=== PATIENT | male | born 1960 | race Caucasian/White ===

== ENCOUNTER 2016-11-28 10:07 | Emergency (ER) | payer SELFPAY ==
[~2016-11-28] VITALS: Ht 165.1 cm; Wt 86.0 kg
[2016-11-28 10:10] VITALS: Ht 165.1 cm; Wt 86.0 kg
[2016-11-28] MEDS ORDERED: HYDROCODONE/APAP (5/325) TAB PO ONE (10:30)
[2016-11-28 10:42] LABS: URINE BLOOD (Dip) POC 1+ (NEGATIVE)
[2016-11-28] MEDS ORDERED: SOD CHLORIDE 0.9% 1,000 ML IV STA (11:11)
[2016-11-28 12:07] LABS: BASOPHILS % 0.5 % (0.0-2.0); EOSINOPHILS % 0.4 % (0.0-7.0); HEMATOCRIT 52.4 % (42.0-52.0); HEMOGLOBIN 17.6 g/dl (14.0-18.0); LYMPHOCYTES # 2.1 10^3/ul (0.8-2.9); MEAN CORPUSCULAR HEMOGLOBIN 27.5 pg (29.0-33.0); MEAN CORPUSCULAR HGB CONC 33.6 g/dl (32.0-37.0); MEAN PLATELET VOLUME 12.1 fl (7.4-10.4); MONOCYTE # 0.4 10^3/ul (0.3-0.9); MONOCYTES % 5.2 % (0.0-11.0); NEUTROPHIL # 5.4 10^3/ul (1.6-7.5); NEUTROPHILS % 67.5 % (39.0-77.0); PLATELET COUNT 161 10^3/UL (140-415); RED BLOOD COUNT 6.39 10^6/ul (4.70-6.10); RED CELL DISTRIBUTION WIDTH 12.8 % (11.5-14.5); WHITE BLOOD COUNT 7.9 10^3/ul (4.8-10.8)
--- NOTE | 2016-11-28 12:12 | RADRPT ---
PROCEDURE: XR Thoracic Spine. CLINICAL INDICATION: Back pain. TECHNIQUE: AP and lateral views of the thoracic spine are available for review. COMPARISON: None available FINDINGS: The upper thoracic spine is not well visualized on the lateral view. There is normal kyphosis of thoracic spine. The alignment is unremarkable. There is no acute fracture. There are multilevel mild degenerative changes of thoracic spine with decreased disk spaces and oste ophytosis. The paravertebral soft tissues are unremarkable. IMPRESSION: 1. No acute fracture or traumatic subluxation. If clinical concern persists consider CT. 2. Multilevel mild thoracic discogenic disease. RPTAT: HH .Jaron Fowler MD, MD Date Time Electronically viewed and signed by .Jaron Fowler MD, on 11/28/2016 12:12 .N/
--- NOTE | 2016-11-28 12:17 | RADRPT ---
PROCEDURE: XR Left rib series. CLINICAL INDICATION: Left chest wall pain. TECHNIQUE: Three views of the left rib cage are available for review COMPARISON: None available FINDINGS: Acute mildly displaced fracture of posterior left ninth rib is noted. Questionable nondisplaced fra cture of posterior left seventh and eighth ribs are noted. No radiopaque foreign body is identified. The visualized portions of the underlying lung is clear. IMPRESSION: 1. Acute mildly displaced fracture of posterior left ninth rib. Questionable nondisplaced fracture of posterior left seventh and eighth ribs. RPTAT: HH .Jaron Fowler MD, Date Time Electronically viewed and signed by .Jaron Fowler MD, on 11/28/2016 12:17 .N/
--- NOTE | 2016-11-28 12:21 | RADRPT ---
PROCEDURE: XR Chest. CLINICAL INDICATION: Left posterior rib pain. TECHNIQUE: Single frontal chest x-ray. COMPARISON: Left-sided rib series of the same day. FINDINGS: The lungs volumes are diminished. There are compressive changes with vascular crowding and basilar atelectasis. No pneumothorax, pleural effusion or consolidation is noted. The cardiomediastinal si lhouette is unremarkable. The base of the heart is elevated due to low lung volumes. Left-sided rib fractures are better seen on left rib series of the same day. IMPRESSION: 1. Low lung volumes with compressive changes and basilar atelectasis. 2. Otherwise, no acute cardiopulmonary abnormality. 3. Left-sided rib fractures are better seen on left rib series of the same day. RPTAT: HH .Jaron Fowler MD, MD Date Time Electronically viewed and signed by .Jaron Fowler MD, MD on 11/28/2016 12:21 .N/
[2016-11-28 12:22] LABS: ALBUMIN 4.6 g/dl (3.3-4.9); ALBUMIN/GLOBULIN RATIO 1.31; BILIRUBIN,INDIRECT 0.2 mg/dl (0-1.1); BILIRUBIN,TOTAL 0.2 mg/dl (0.2-1.3); CALCIUM 9.2 mg/dl (8.4-10.2); CREATININE 0.88 mg/dl (0.61-1.24); POTASSIUM 4.6 mmol/L (3.5-5.1); TOTAL PROTEIN 8.1 g/dl (6.1-8.1)
--- NOTE | 2016-11-28 12:23 | RADRPT ---
PROCEDURE: XR Lumbar Spine. CLINICAL INDICATION: Low back pain. TECHNIQUE: Three views of the lumbar spine are available for review COMPARISON: None available FINDINGS: The normal lumbar lordosis is preserved. Alignment is intact. No acute fracture or dislocation is seen. The vertebral body heights are all normal. There are mild degenerative changes of lumbar spine, main ly at L5-S1. IMPRESSION: 1. No acute fracture or dislocation. 2. Mild discogenic disease of lumbar spine, mainly at L5-S1. RPTAT: HH .Jaron Fowler MD, Date Time Electronically viewed and signed by .Jaron Fowler MD, on 11/28/2016 12:22 .N/
--- NOTE | 2016-11-28 12:40 | ERD ---
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 States he fell and landed on some metal bars. Denies any headache, dizziness, blurred vision, loss of consciousness, nausea vomiting. ROS All systems reviewed and are negative except as per history of present illness. Medications Home Meds Active Scripts Naproxen* (Naprosyn*) 500 Mg Tablet, 500 MG PO BID Y for PAIN AND/OR INFLAMMATION, #30 TAB Prov:HUY MILES PA-C 11/28/16 Hydrocodone/Acetaminophen ([place] 5-325 Tablet) 1 Each Tablet, 1 TAB PO Q6H Y for PAIN, #15 TAB Prov:HUY MILES PA-C 11/28/16 Allergies Allergies: Coded Allergies: No Known Allergy (Unverified , 11/28/16) PMhx/Soc Medical and Surgical Hx: pt denies Medical Hx, pt denies Surgical Hx History of Surgery: No Anesthesia Reaction: No Hx Neurological Disorder: No Hx Respiratory Disorders: No Hx Cardiac Disorders: No Hx Psychiatric Problems: No Hx Miscellaneous Medical Probl: No Hx Alcohol Use: No Hx Substance Use: No Hx Tobacco Use: No Smoking Status: Never smoker Physical Exam Vitals Vital Signs Date Time Temp Pulse Resp B/P Pulse Ox O2 Delivery O2 Flow Rate FiO2 11/28/16 10:10 97.6 75 18 163/91 98 Physical Exam Const: No acute distress Head: Atraumatic Eyes: Normal Conjunctiva ENT: Normal External Ears, Nose and Mouth. Neck: Full range of motion..~ No meningismus. Resp: Clear to auscultation bilaterally. No absent breath sounds. No wheezing. Cardio: Regular rate and rhythm, no murmurs Abd: Soft, non tender, non distended. Normal bowel sounds Skin: Abrasions and bruising left-sided flank and left side of ribs Back: No midline tenderness. Left-sided flank tenderness. Ext: No cyanosis, or edema Neur: Awake and alert Psych: Normal Mood and Affect Result Diagram: 11/28/16 1135 11/28/16 1135 Results 24 hrs Laboratory Tests Test 11/28/16 10:47 11/28/16 11:35 Bedside Urine pH (LAB) 6.0 Bedside Urine Protein (LAB) Negative Bedside Urine Glucose (UA) 0.1% Bedside Urine Ketones (LAB) Negative Bedside Urine Blood 1+ Bedside Urine Nitrite (LAB) Negative Bedside Urine Leukocyte Esterase (L Negative White Blood Count 7.910^3/ul Red Blood Count 6.3910^6/ul Hemoglobin 17.6g/dl Hematocrit 52.4% Mean Corpuscular Volume 82.0fl Mean Corpuscular Hemoglobin 27.5pg Mean Corpuscular Hemoglobin Concent 33.6g/dl Red Cell Distribution Width 12.8% Platelet Count 36505^3/UL Mean Platelet Volume 12.1fl Neutrophils % 67.5% Lymphocytes % 26.0% Monocytes % 5.2% Eosinophils % 0.4% Basophils % 0.5% Nucleated Red Blood Cells % 0.0/100WBC Neutrophils # 5.410^3/ul Lymphocytes # 2.110^3/ul Monocytes # 0.410^3/ul Eosinophils # 0.010^3/ul Basophils # 0.010^3/ul Nucleated Red Blood Cells # 0.010^3/ul Sodium Level 144mmol/L Potassium Level 4.6mmol/L Chloride Level 104mmol/L Carbon Dioxide Level 28mmol/L Anion Gap 17 Blood Urea Nitrogen 13mg/dl Creatinine 0.88mg/dl Glucose Level 132mg/dl Calcium Level 9.2mg/dl Total Bilirubin 0.2mg/dl Direct Bilirubin 0.00mg/dl Indirect Bilirubin 0.2mg/dl Aspartate Amino Transf (AST/SGOT) 31IU/L Alanine Aminotransferase (ALT/SGPT) 49IU/L Alkaline Phosphatase 127IU/L Total Protein 8.1g/dl Albumin 4.6g/dl Globulin 3.50g/dl Albumin/Globulin Ratio 1.31 Current Medications Medications (Trade) Dose Ordered Sig/Kasi Route PRN Reason Start Time Stop Time Status Last Admin Dose Admin Acetaminophen/ Hydrocodone Bitart 1 tab 1 tab ONCE ONCE PO 11/28/16 10:30 11/28/16 10:31 DC 11/28/16 10:35 Sodium Chloride (NS) 1,000 ml @ 1,000 mls/hr Q1H STAT IV 11/28/16 11:11 11/28/16 12:10 DC 11/28/16 11:42 IV Flush 10 ml 10 ml STK-MED ONCE .ROUTE 11/28/16 13:05 11/28/16 13:06 DC Sodium Chloride (NS) 100 ml @ ud STK-MED ONCE .ROUTE 11/28/16 13:05 11/28/16 13:06 DC Iohexol (Omnipaque 300mg/ ml) 150 ml STK-MED ONCE .ROUTE 11/28/16 13:05 11/28/16 13:06 DC DIAGNOSTIC IMAGING REPORT Patient: PATRICK FOSTER : 1960 Age: 55 Sex: M MR #: [id number] DOS: 11/28/16 0000 Ordering MD: HUY MILES PA-C Location: [facility] Room/Bed: PROCEDURE: XR Chest. CLINICAL INDICATION: Left posterior rib pain. TECHNIQUE: Single frontal chest x-ray. COMPARISON: Left-sided rib series of the same day. FINDINGS: The lungs volumes are diminished. There are compressive changes with vascular crowding and basilar atelectasis. No pneumothorax, pleural effusion or consolidation is noted. The cardiomediastinal silhouette is unremarkable. The base of the heart is elevated due to low lung volumes. Left-sided rib fractures are better seen on left rib series of the same day. IMPRESSION: 1. Low lung volumes with compressive changes and basilar atelectasis. 2. Otherwise, no acute cardiopulmonary abnormality. 3. Left-sided rib fractures are better seen on left rib series of the same day. RPTAT: HH .Jaron Fowler MD, MD Date Time Electronically viewed and signed by .Jaron Fowler MD, MD on 11/28/2016 12: 21 .N/ CC: HUY MILES PA-C DIAGNOSTIC IMAGING REPORT Patient: PATRICK FOSTER : 1960 Age: 55 Sex: M MR #: [id number] DOS: 11/28/16 0000 Ordering MD: HUY MILES PA-C Location: [facility] Room/Bed: PROCEDURE: XR Lumbar Spine. CLINICAL INDICATION: Low back pain. TECHNIQUE: Three views of the lumbar spine are available for review COMPARISON: None available FINDINGS: The normal lumbar lordosis is preserved. Alignment is intact. No acute fracture or dislocation is seen. The vertebral body heights are all normal. There are mild degenerative changes of lumbar spine, mainly at L5-S1. IMPRESSION: 1. No acute fracture or dislocation. 2. Mild discogenic disease of lumbar spine, mainly at L5-S1. RPTAT: HH .Jaron Fowler MD, MD Date Time Electronically viewed and signed by .Jaron Fowler MD, MD on 11/28/2016 12: 22 .N/ CC: HUY MILES PA-C DIAGNOSTIC IMAGING REPORT Patient: PATRICK FOSTER : 1960 Age: 55 Sex: M MR #: [id number] DOS: 11/28/16 0000 Ordering MD: HUY MILES PA-C Location: [facility] Room/Bed: PROCEDURE: XR Lumbar Spine. CLINICAL INDICATION: Low back pain. TECHNIQUE: Three views of the lumbar spine are available for review COMPARISON: None available FINDINGS: The normal lumbar lordosis is preserved. Alignment is intact. No acute fracture or dislocation is seen. The vertebral body heights are all normal. There are mild degenerative changes of lumbar spine, mainly at L5-S1. IMPRESSION: 1. No acute fracture or dislocation. 2. Mild discogenic disease of lumbar spine, mainly at L5-S1. RPTAT: .Jaron Fowler MD, MD Date Time Electronically viewed and signed by .Jaron Fowler MD, MD on 11/28/2016 12: 22 .N/ CC: HUY MILES PA-C DIAGNOSTIC IMAGING REPORT Patient: PATRICK FOSTER : 1960 Age: 55 Sex: M MR #: [id number] DOS: 11/28/16 0000 Ordering MD: HUY MILES PA-C Location: [facility] Room/Bed: PROCEDURE: XR Thoracic Spine. CLINICAL INDICATION: Back pain. TECHNIQUE: AP and lateral views of the thoracic spine are available for review. COMPARISON: None available FINDINGS: The upper thoracic spine is not well visualized on the lateral view. There is normal kyphosis of thoracic spine. The alignment is unremarkable. There is no acute fracture. There are multilevel mild degenerative changes of thoracic spine with decreased disk spaces and osteophytosis. The paravertebral soft tissues are unremarkable. IMPRESSION: 1. No acute fracture or traumatic subluxation. If clinical concern persists consider CT. 2. Multilevel mild thoracic discogenic disease. RPTAT: HH .Jaron Fowler MD, MD Date Time Electronically viewed and signed by .Jaron Fowler MD, MD on 11/28/2016 12: 12 .N/ CC: HUY MILES PA-C DIAGNOSTIC IMAGING REPORT Patient: PATRICK FOSTER : 1960 Age: 55 Sex: M MR #: [id number] DOS: 11/28/16 1111 Ordering MD: HUY MILES PA-C Location: [facility] Room/Bed: PROCEDURE: CT Abdomen and pelvis with contrast. CLINICAL INDICATION: Left-sided flank pain. History of trauma. Hematuria. TECHNIQUE: CT scan of the abdomen and pelvis with contrast was performed on a multidetector high-resolution CT scan. The patient was scanned following the uncomplicated intravenous administration of 100 cc Omnipaque 300. Coronal and sagittal reformatted images were obtained from the axial source images. Standard CT of the abdomen pelvis with contrast protocols were performed. The total exam CTDI equals 12.1 knee mGy and the total exam DLP equals 761.18 mGy-cm. One or more of the following dose reduction techniques were used: - Automated exposure control. - Adjustment of the mA and/or kV according to patient size. Use of iterative reconstruction technique. COMPARISON: None. FINDINGS: The kidneys are normal in size without evidence of hydronephrosis or definite intra renal masses bilaterally. Note that there is ill-defined low density along the superior aspect of the left kidney is felt to be artifactual secondary to motion. In the lateral left mid kidney is a 5 mm non-obstructing calcified calculus. There are no calcified ureteral calculi. 1.3 cm coarse calcified calculus. Remainder the urinary bladder is unremarkable. The prostate gland is moderate to severely enlarged and impresses the floor of the urinary bladder. Recommend PSA levels. Negative for intra-abdominal free air, free fluid, abscesses or lymphadenopathy. The aorta is unremarkable. The liver is normal in size with diffuse inhomogeneous hepatic fatty infiltration. There are no focal hepatic lesions. The spleen pancreas adrenal glands and gallbladder are unremarkable. No evidence of biliary ductal dilation. There is a small hiatal hernia with the stomach otherwise unremarkable. The small bowel and appendix are unremarkable. There are mild diverticular changes of the distal descending colon but no CT evidence of diverticulitis. Remainder of the colon is unremarkable. The lower thoracic abdominal pelvic portillo are unremarkable. There is dependent lung atelectasis at the lung bases otherwise unremarkable. There are degenerative changes lower thoracic and lumbar spine without acute osseous findings or osteoblastic/osteolytic lesions. 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 IMPRESSION: 1. 5 mm non-obstructing left mid renal calcified calculus. Additional 1.3 cm coarse urinary bladder calcified calculus. No other urinary calcified calculi and no obstructive uropathy bilaterally. 2. Moderate to severely enlarged prostate gland with impression on the floor in her bladder. Recommend PSA levels. 3. Small hiatal hernia. RPTAT:AAJJ B Rosas, Physician Date Time Electronically viewed and signed by Samson Rosas Physician on 11/28/2016 13:34 BM/ CC: HUY MILES PA-C Procedures/MDM This 55-year-old male who presents the emergency department today complaining of left-sided flank and rib pain after sustaining a trauma and falling one story while at work. Given patient's trauma I did obtain images as well as a UA Per the radiology report images of the chest show low lung volumes with compressive changes and basilar atelectasis. There are left-sided rib fractures. There is no pneumothorax, pleural effusion or consolidation. Images of the lumbar spine show no acute fracture dislocation. There is mild discogenic disease of lumbar spine mainly at L5 and S1 Images of the thoracic spine show no acute fracture or traumatic subluxation. There is multilevel mild thoracic discogenic disease Images of the left ribs show an acute mildly displaced fracture of the posterior left ninth rib. There is a questionable nondisplaced fracture of the posterior left seventh and eighth ribs. UA shows 1+ hematuria and small amount of glucose. Given patient's hematuria and location of pain I did discuss the patient with Dr. Hamilton and he has recommended a CT abdomen pelvis with contrast Laboratory workup shows no elevated white blood cell count. He is not anemic. Platelets are within normal limits. Electrolytes are within normal limits. Creatinine is within normal limits. Glucose within normal limits. Liver enzymes within normal limits. CT abdomen pelvis with contrast shows kidneys are normal in size without evidence of hydronephrosis or definite intrarenal masses bilaterally. There is an ill-defined low density on this. Aspect of the left kidney felt to be artifactual secondary to motion. In the left lateral mid kidney is a 5 mm nonobstructing calcified calculus. There are no calcified ureteral calculi. There is a 1.3 cm coarse calcified calculus. Remainder in the urinary bladder is unremarkable. Prostate gland is moderate to severely enlarged. Skin is negative for intra-abdominal free air, free fluid, abscesses or lymphadenopathy. Liver is normal in size with hepatic fatty infiltration. Spleen, pancreas adrenal glands and gallbladder are unremarkable. There is no evidence of biliary ductal dilatation. There is a small hiatal hernia within the stomach otherwise unremarkable. Small bowel and appendix are unremarkable. There are mild diverticular changes of the distal descending colon but no CT evidence of diverticulitis. Remainder the colon is unremarkable. There are degenerative changes in the lower thoracic and lumbar spine without acute osseous findings or osteoblastic osteolytic lesions. Patient's hematuria may be related to his kidney stones. I have explained this to the patient. Patient does have rib fractures likely related to to fall and trauma. I have explained all results to the patient. Him he does need to follow-up with his primary care physician given his multiple findings on CT scan. There is no evidence of acute organ injury. Patient was given [place], IV fluids here in the emergency department. I did ask patient if he required more pain medication here in the emergency department he declined. He will be discharged home with a prescription for [place], Naprosyn. At this time the patient is stable for discharge and outpatient management. Patient should follow up with their PCP in the next 1-2 days. They may return to the emergency department sooner for any persistent or worsening of symptoms. Patient understood and agreed with the plan. Departure Diagnosis: Primary Impression: Rib fracture Encounter type: initial encounter Rib fracture type: multiple ribs Fracture type: closed Laterality: left Qualified Code: S22.42XA - Closed fracture of multiple ribs of left side, initial encounter Additional Impression: Fall Encounter type: initial encounter Qualified Code: W19.XXXA - Fall, initial encounter Condition: Fair HUY MILES PA-C Nov 28, 2016 12:40
[2016-11-28] MEDS ORDERED: IOHEXOL 300MG/ML 150 ML BTL ONE (13:05)
[2016-11-28] MEDS ORDERED: SOD CHLORIDE 0.9% 100 ML ONE (13:05)
--- NOTE | 2016-11-28 13:35 | RADRPT ---
PROCEDURE: CT Abdomen and pelvis with contrast. CLINICAL INDICATION: Left-sided flank pain. History of trauma. Hematuria. TECHNIQUE: CT scan of the abdomen and pelvis with contrast was performed on a multidetector high-r esolution CT scan. The patient was scanned following the uncomplicated intravenous administration o f 100 cc Omnipaque 300. Coronal and sagittal reformatted images were obtained from the axial source images. Standard CT of the abdomen pelvis with contrast protocols were performed. The total exam CTDI equals 12.1 knee mGy and the total exam DLP equals 761.18 mGy-cm. One or more of the following dose reduction techniques were used: - Automated exposure control. - Adjustment of the mA and/or kV according to patient size. Use of iterative reconstruction technique. COMPARISON: None. FINDINGS: The kidneys are normal in size without evidence of hydronephrosis or definite intra renal masses true aterally. Note that there is ill-defined low density along the superior aspect of the left kidney i s felt to be artifactual secondary to motion. In the lateral left mid kidney is a 5 mm non-obstruct ing calcified calculus. There are no calcified ureteral calculi. 1.3 cm coarse calcified calculus. Remainder the urinary bladder is unremarkable. The prostate gland is moderate to severely enlarge d and impresses the floor of the urinary bladder. Recommend PSA levels. Negative for intra-abdominal free air, free fluid, abscesses or lymphadenopathy. The aorta is unrem arkable. The liver is normal in size with diffuse inhomogeneous hepatic fatty infiltration. There are no foc al hepatic lesions. The spleen pancreas adrenal glands and gallbladder are unremarkable. No eviden ce of biliary ductal dilation. There is a small hiatal hernia with the stomach otherwise unremarkable. The small bowel and appendi x are unremarkable. There are mild diverticular changes of the distal descending colon but no CT ev idence of diverticulitis. Remainder of the colon is unremarkable. The lower thoracic abdominal pelvic portillo are unremarkable. There is dependent lung atelectasis at the lung bases otherwise unremarkable. There are degenerative changes lower thoracic and lumbar spine without acute osseous findings or ost eoblastic/osteolytic lesions. 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 IMPRESSION: 1. 5 mm non-obstructing left mid renal calcified calculus. Additional 1.3 cm coarse urinary bladde r calcified calculus. No other urinary calcified calculi and no obstructive uropathy bilaterally. 2. Moderate to severely enlarged prostate gland with impression on the floor in her bladder. Recom mend PSA levels. 3. Small hiatal hernia. RPTAT:AAJJ Samson Rosas Physician Date Time Electronically viewed and signed by Samson Rosas Physician on 11/28/2016 13:34 BM/
[2016-11-28] MEDS ORDERED: NAPR-260 PO (14:27)
[2016-11-28] MEDS ORDERED: HYDR-906 PO (14:27)
[2016-11-28 15:38] VITALS: BP 143/82; PULSE 66; RESP 18; TEMP 98
[2016-12-03 16:12] LABS: URINE BLOOD (Dip) POC 1+ (NEGATIVE)
== END 2016-11-28 15:10 | disposition home or self-care (01) ==
LOC: FTE 10:07
DX: S22.42XA Multiple fractures of ribs, left side, initial encounter for closed fracture (principal); W01.0XXA Fall on same level from slipping, tripping and stumbling without subsequent striking against object, initial encounter; Y92.69 Other specified industrial and construction area as the place of occurrence of the external cause
CPT/HCPCS: 36415; 71010; 71100; 72072; 72100; 74177; 80053; 81003; 85025; 99285; J7030; Q9967